=== PATIENT | male | born 1940 | race Caucasian/White ===

== ENCOUNTER 2017-04-08 07:00 | Inpatient (IN) | payer OTHER ==
[~2017-04-08] VITALS: Ht 165.1 cm; Wt 70.3 kg
[2017-04-08] MEDS ORDERED: METFORMIN HCL500 MG PO (08:58)
[2017-04-08] MEDS ORDERED: PRANDIN PO (08:58)
[2017-04-08] MEDS ORDERED: CARDURA PO (08:59)
[2017-04-08] MEDS ORDERED: COZAAR100 MG PO (08:59)
[2017-04-08] MEDS ORDERED: TOPROL XL50 M1 PO (09:00)
[2017-04-08] MEDS ORDERED: ELAVIL PO (09:00)
[2017-04-08] MEDS ORDERED: PLAVIX75 MG PO (09:00)
[2017-04-08] MEDS ORDERED: LIPITOR20 MG PO (09:01)
[2017-04-08] MEDS ORDERED: ASA-EC81 MG PO (09:01)
[2017-04-08] MEDS ORDERED: PROSCAR5 MG PO (09:01)
[2017-04-16] MEDS ORDERED: PERCOCET 5-3251 EACH PO (11:45)
[2017-04-16] MEDS ORDERED: DOCUSATE SODIU100 MG PO (11:45)
[2017-04-16] MEDS ORDERED: CLONAZEPAM1 MG PO (11:45)
== END 2017-04-16 12:37 | disposition home or self-care (01) | DRG 454 ==
LOC: O/R 04-15 05:00 → PED 04-15 05:00 → SURH 04-15 07:00 → PED 04-15 12:16
PROVIDERS: Orthopaedic Surgery Orthopaedic Surgery of the Spine
PROC: 0RG20A0 Fusion of 2 or more Cervical Vertebral Joints with Interbody Fusion Device, Anterior Approach, Anterior Column, Open Approach (ICD-10-PCS; 2017-04-15)
PROC: 0RG20K1 Fusion of 2 or more Cervical Vertebral Joints with Nonautologous Tissue Substitute, Posterior Approach, Posterior Column, Open Approach (ICD-10-PCS; 2017-04-15)
PROC: 0RT30ZZ Resection of Cervical Vertebral Disc, Open Approach (ICD-10-PCS; principal; 2017-04-15 10:00)
DX: M50.021 Cervical disc disorder at C4-C5 level with myelopathy (principal); M47.12 Other spondylosis with myelopathy, cervical region; E11.9 Type 2 diabetes mellitus without complications; I10 Essential (primary) hypertension

== ENCOUNTER 2017-06-03 10:43 | Outpatient (CLI) | payer OTHER ==
[~2017-06-03 10:43] MED LIST: ASA-EC81 MG PO; CARDURA PO; CLONAZEPAM1 MG PO; COZAAR100 MG PO; DOCUSATE SODIU100 MG PO; ELAVIL PO; LIPITOR20 MG PO; METFORMIN HCL500 MG PO; PERCOCET 5-3251 EACH PO; PLAVIX75 MG PO; PRANDIN PO; PROSCAR5 MG PO; TOPROL XL50 M1 PO
== END 2017-06-03 10:52 | disposition home or self-care (01) ==
LOC: RAD 10:43
DX: M50.00 Cervical disc disorder with myelopathy, unspecified cervical region (principal); Z98.1 Arthrodesis status

== ENCOUNTER 2017-10-11 09:38 | Outpatient (CLI) | payer OTHER | END 2017-10-11 09:43 | disposition home or self-care (01) | LOC: RAD 09:38 | DX: M50.00 Cervical disc disorder with myelopathy, unspecified cervical region (principal); Z98.1 Arthrodesis status ==

== ENCOUNTER 2018-09-16 09:47 | Outpatient (CLI) | payer OTHER | END 2018-09-16 09:53 | disposition home or self-care (01) | LOC: RAD 09:47 | DX: M50.00 Cervical disc disorder with myelopathy, unspecified cervical region (principal); Z98.1 Arthrodesis status ==